=== PATIENT | female | born 1965 | race Caucasian/White ===

== ENCOUNTER 2022-08-04 08:00 | Outpatient (CLI) | payer BC, SELFPAY ==
--- NOTE | 2022-08-04 09:43 | W.ANESCHARGE ---
Anesthesia Charges Start Date/Time Anesthesia Start Date: 08/04/22 Anesthesia Start Time: 08:45 Stop Date/Time Anesthesia Stop Date: 08/04/22 Anesthesia Stop Time: 09:35 Summary Emergency: No
== END 2022-08-04 08:01 | disposition home or self-care (01) ==
LOC: OP CLINIC 08:01
PROVIDERS: PCP Family Medicine; Visit Provider Internal Medicine Gastroenterology
DX: Z12.11 Encounter for screening for malignant neoplasm of colon (principal); K63.5 Polyp of colon; Z86.010 Personal history of colon polyps
CPT/HCPCS: 00811; 45385; 88305; J2704

== ENCOUNTER 2023-09-28 07:07 | Outpatient (CLI) | payer BC, SELFPAY ==
--- NOTE | 2023-09-28 08:42 | W.ANESCHARGE ---
Anesthesia Charges Start Date/Time Anesthesia Start Date: 09/28/23 Anesthesia Start Time: 07:57 Stop Date/Time Anesthesia Stop Date: 09/28/23 Anesthesia Stop Time: 08:42
--- NOTE | 2023-09-28 11:21 | W.ANESCHARGE ---
Anesthesia Charges Start Date/Time Anesthesia Start Date: 09/28/23 Anesthesia Start Time: 07:57 Stop Date/Time Anesthesia Stop Date: 09/28/23 Anesthesia Stop Time: 08:42
== END 2023-09-28 07:08 | disposition home or self-care (01) ==
LOC: OP CLINIC 07:08
PROVIDERS: PCP Family Medicine; Visit Provider Internal Medicine Gastroenterology
DX: Z12.11 Encounter for screening for malignant neoplasm of colon (principal); K57.30 Diverticulosis of large intestine without perforation or abscess without bleeding; K63.5 Polyp of colon; Z86.010 Personal history of colon polyps
CPT/HCPCS: 00811; 45380; 45385; 88305; J2704